=== PATIENT | female | born 2000 | race Caucasian/White ===

== ENCOUNTER 2021-06-04 05:38 | Emergency (ER) | payer OTHER ==
[~2021-06-04 05:38] MED LIST: FOLIC ACID 1 MG1 MG PO; KEPPRA500 MG PO
[2021-06-04 06:38] LABS: HEMOGLOBIN 15.1 gm/dl (12.3-15.3); RED BLOOD COUNT 4.72 M/UL (4.00-5.10); WHITE BLOOD COUNT 10.2 K/UL (4.5-11.0)
[2021-06-04 06:49] LABS: BUN/CREATININE RATIO 12 (0-10)
[2021-06-04] MEDS ORDERED: KEPPRA500 MG PO (09:53)
== END 2021-06-04 10:45 | disposition home or self-care (01) ==
LOC: ER1 05:38
PROVIDERS: Family Medicine; Physician Assistant
DX: G40.909 Epilepsy, unspecified, not intractable, without status epilepticus (principal); R21 Rash and other nonspecific skin eruption; F17.200 Nicotine dependence, unspecified, uncomplicated
CPT/HCPCS: 80053; 80307; 81001; 85025; 96374; 96375; 99284; J1200; J1953; J2930